=== PATIENT | male | born 1955 | race Caucasian/White ===

== ENCOUNTER 2018-07-17 14:56 | Emergency (ER) | payer BC, OTHER ==
[2018-07-17] MEDS ORDERED: Tetan/Diph/Pertus SYR(Tdap)* 0.5 ML SYR(BOOSTRIX) use SYR IM ONE (14:59)
--- NOTE | 2018-07-17 15:03 | UC ---
Laceration HPI - HPI Summary HPI Summary: 62 yo male presents with laceration to right burnett. He tells me that about 30min [employer] he was working on a ladder and lost his footing. Hit his right burnett against a piece of wood and fell off the ladder landing on his buttocks on the grass. He did not hit his head. Currently he has some mild pain in his lower back, but is ambulatory and says "it just feels like a strain". He sustained a laceration to his right burnett. Last tetanus was in 2010. Denies numbness, tingling, saddle anesthesia, loss of bowel/bladder function. - History Of Current Complaint Stated Complaint: BURNETT LACERATION Time Seen by Provider: 07/17/18 15:03 Hx Obtained From: Patient Laceration Location: Leg Mechanism Of Injury: Blunt Trauma Onset/Duration: Sudden Onset Severity: Moderate Pain Intensity: 5 Pain Scale Used: 0-10 Numeric - Allergies/Home Medications Allergies/Adverse Reactions: Allergies Allergy/AdvReac Type Severity Reaction Status Date / Time No Known Allergies Allergy Verified 07/17/18 15:08 Home Medications: Home Medications NK [No Home Medications Reported] 07/17/18 [History Confirmed 07/17/18] PMH/Surg Hx/FS Hx/Imm Hx - Additional Past Medical History Additional PMH: None - Family History Known Family History: Positive: None - Social History Occupation: Employed Full-time Lives: With Family Alcohol Use: Occasionally Substance Use Type: None Smoking Status (MU): Never Smoked Tobacco Review of Systems All Other Systems Reviewed And Are Negative: Yes Constitutional: Positive: Negative Skin: Positive: Other - Laceration right burnett Respiratory: Positive: Negative Cardiovascular: Positive: Negative Genitourinary: Positive: Negative Neurovascular: Positive: Negative Musculoskeletal: Positive: Other: - Low back pain Neurological: Positive: Negative Psychological: Positive: Negative Physical Exam - Summary Physical Exam Summary: GENERAL: NAD. WDWN. No pain distress. SKIN: 2.0cm linear laceration at right burnett with subcutaneous tissue exposed. NECK: Supple. FROM. Nontender. No lymphadenopathy. CHEST: CTAB. No r/r/w. No accessory muscle use. Breathing comfortably and in no distress. CV: RRR. Without m/r/g. Pulses intact. Cap refill <2seconds MSK: TTP over lumbar paraspinal muscles. Mild pain with flexion and extension of spine. Negative SLR b/l. Strength 5/5 B/L LEs including dorsiflexion and plantar flexion. FROM B/L LEs. No vertebral tenderness. NEURO: Alert. Sensations intact B/L LEs L3-S1. PSYCH: Age appropriate behavior. Triage Information Reviewed: Yes Vital Signs: Vital Signs: Temp Pulse Resp BP Pulse Ox 99.1 F 80 16 120/79 100 07/17/18 15:02 07/17/18 15:02 07/17/18 15:02 07/17/18 15:02 07/17/18 15:02 Vital Signs Reviewed: Yes Laceration Repair - Laceration Repair 1 Description: Linear Laceration Size After Repair: Length (cm) - 2.0 Modified For Repair: No Anesthesia Used: 2.0% Lido Irrigation With Pressure Irrigation Device: Yes Closure Material: Sutures - #4 Closure Method: Single Layer Suture Of: Skin Suture Type: Prolene - 4-0 Laceration Course/Dx - Course/Dx Course Of Treatment: Pt declined XR or imaging of his spine at this time and would like to rest, apply heat, and take ibuprofen. If symptoms do not improve - will follow up. Regarding his right burnett laceration; The procedure was explained to the pt and all questions were answered. A time out was performed, witnessed, and signed. The area was irrigated with 500mL sterile saline. 2mL of 2% lidocaine without epi was administered and good anesthetization was achieved. In the usual sterile fashion, FOUR 4-0 prolene interrupted sutures were placed. The wound was bandaged with telfa. During the repair, pt mentioned that he has a hx of "passing out" if he looks at blood or needles. He began to feel faint and said he was going to pass out. He was already lying on the exam table with the head of the bed at ~60deg. The bed was lowered to ~30deg and pt did have vasovagal syncope. His face became pale and BP was found to be 90s/ 60s. He awoke after about 30 seconds and was talking and face regained good color. BP kendrick to baseline. He was given water and apple juice. Pt remained feeling well without issue for completion of sutures. He was observed and sitting, standing, and walking without difficulty and says he feels fine now. tdap was updated today. Christina RN assisted with caring for pt during his syncope. - Diagnosis Provider Diagnosis: Laceration of right lower leg, Fall, Low back pain Discharge - Sign-Out/Discharge Documenting (check all that apply): Patient Departure All imaging exams completed and their final reports reviewed: No Studies - Discharge Plan Condition: Stable Disposition: HOME Patient Education Materials: Care For Your Stitches (DC), Laceration (ED) Referrals: Manuela Patten MD [Primary Care Provider] - Additional Instructions: If you develop a fever, shortness of breath, chest pain, new or worsening symptoms - please call your PCP or go to the ED. 1) Please keep the area bandaged, clean, dry, and intact for the next 24- 48hours. 2) If you develop a fever, colored or thick discharge, increased pain or swelling - please call your PCP or go to the ED. 3) Please return in 10 days to have your FOUR sutures removed. - Billing Disposition and Condition Condition: STABLE Disposition: Home
[2018-07-17] MEDS ORDERED: Lidocaine 2% PF * 5 ML VIAL INJ ONE (15:13)
[2018-07-17 15:58] VITALS: BP 138/70
== END 2018-07-17 15:50 | disposition home or self-care (01) ==
LOC: UCEAST 14:56
DX: S81.811A Laceration without foreign body, right lower leg, initial encounter (principal); W18.09XA Striking against other object with subsequent fall, initial encounter; Y92.9 Unspecified place or not applicable; M54.5 Low back pain; Z23 Encounter for immunization
CPT/HCPCS: 12001; 90471; 90715; 99211; G0463